=== PATIENT | female | born 1985 | race Hispanic/Latino ===

== ENCOUNTER → 2024-08-27 | Outpatient (CLI) | payer OTHER ==
--- NOTE | 2024-08-27 09:39 | HMCIMG ---
Exam Type: Complete abdominal ultrasound with hepatic color-flow Doppler Findings: The liver shows fatty infiltration and is enlarged, measuring 18 point and is otherwise unremarkable. Doppler evaluation shows patent portal and hepatic veins. The gallbladder shows no significant abnormalities. Specifically, no calculi are seen. No bile duct dilatation is noted. The gallbladder wall measures 3 mm. The common bile duct measures 4 mm. The right kidney measures 10.6 x 3.9 cm. The left kidney measures 11.5 x 4.4 cm. The kidneys show no hydronephrosis or calculi, masses or other abnormalities. The pancreas is unremarkable. The spleen is unremarkable. The aorta and inferior vena cava show no significant abnormalities. IMPRESSION: FATTY LIVER INFILTRATION AND HEPATOMEGALY. OTHERWISE NORMAL ABDOMINAL ULTRASOUND.
== END | disposition home or self-care (01) ==
LOC: RAH 08:25
PROVIDERS: ATTEND Internal Medicine
DX: K76.0 Fatty (change of) liver, not elsewhere classified (principal); R16.0 Hepatomegaly, not elsewhere classified; K80.50 Calculus of bile duct without cholangitis or cholecystitis without obstruction; R51.9 Headache, unspecified
CPT/HCPCS: 76700

== ENCOUNTER → 2024-09-03 | Outpatient (CLI) | payer OTHER ==
--- NOTE | 2024-09-03 14:55 | HMCIMG ---
Exam: NONCONTRAST CT BRAIN REASON: HEADACHES. COMPARISON: None. TECHNIQUE: Images are obtained from vertex to the skull base. The exam was performed without IV contrast. FINDINGS: There is normal appearing brain parenchyma. There are no focal mass lesions. There is is no evidence of intracranial hemorrhage or acute stroke. Ventricles and sulci appear normal. Posterior fossa and brainstem structures are unremarkable. Paranasal sinuses and remaining extracranial soft tissues appear normal as well. IMPRESSION: 1. Normal noncontrast CT brain. CT was performed with one or more following dose reduction techniques: automated exposure control, adjustment of the mA and kv according to patient's size, or use of a iterative reconstruction technique.
== END | disposition home or self-care (01) ==
LOC: RAH 13:59
PROVIDERS: ATTEND Internal Medicine
DX: R51.9 Headache, unspecified (principal)
CPT/HCPCS: 70450